=== PATIENT | female | born 1950 | race Caucasian/White ===

== ENCOUNTER 2021-02-22 12:42 | Emergency (ER) | payer MEDICARE ==
[~2021-02-22] VITALS: Ht 162.6 cm; Wt 69.5 kg
--- NOTE | 2021-02-22 12:58 | NUR ---
Pt is not a stroke alert per Dr Riddle.
[2021-02-22 13:48] LABS: BASOPHILS # (AUTO) 0.1 X10'3 (0-0.2); BASOPHILS % (AUTO) 0.7 % (0-1); EOSINOPHILS # (AUTO) 0.1 X10'3 (0-0.9); EOSINOPHILS % (AUTO) 1.1 % (0-6); HEMATOCRIT 36.2 % (35.0-45.0); LYMPHOCYTES # (AUTO) 1.8 X10'3 (1.1-4.8); LYMPHOCYTES % (AUTO) 18.7 % (21-51); MEAN CORPUSCULAR HEMOGLOBIN 28.2 PG (27.0-31.0); MEAN CORPUSCULAR HGB CONC 33.1 g/dL (33.0-36.5); MEAN CORPUSCULAR VOLUME 85.2 FL (78-98); MEAN PLATELET VOLUME 8.7 FL (7.4-10.4); MONOCYTES # (AUTO) 1.1 X10'3 (0-0.9); MONOCYTES % (AUTO) 11.4 % (2-12); NEUTROPHILS # (AUTO) 6.5 X10'3 (1.8-7.7); NEUTROPHILS % (AUTO) 68.1 % (42-75); PLATELET COUNT 249 X10'3 (140-440); RED BLOOD COUNT 4.25 X10'6 (4.20-5.60); RED CELL DISTRIBUTION WIDTH 13.9 % (11.5-14.5); WHITE BLOOD COUNT 9.5 X10'3 (4.5-11.0)
[2021-02-22 14:01] LABS: CLARITY,URINE CLEAR (Clear); COLOR,URINE YELLOW (Yellow); GLUCOSE, URINE NEGATIVE (Neg); KETONES,URINE NEGATIVE (Neg); LEUKOCYTE ESTERASE ,URINE NEGATIVE (Neg); NITRITES, URINE NEGATIVE (Neg); OCCULT BLOOD,URINE NEGATIVE (Neg); PH,URINE 5.5 (4.8-8.0); PROTEIN,URINE 30 mg/dl (Neg); UROBILINOGEN,URINE 0.2 E.U/dL (0.2-1.0)
[2021-02-22 14:03] LABS: ALANINE AMINOTRANSFERASE 21 U/L (12-78); ALBUMIN 3.6 G/DL (3.4-5.0); ALKALINE PHOSPHATASE 74 IU/L (46-116); ANION GAP 9 (8-16); ASPARTATE AMINO TRANSFERASE 19 U/L (10-37); BILIRUBIN,TOTAL 0.3 MG/DL (0.1-1.0); BLOOD UREA NITROGEN 21 MG/DL (7-18); CALCIUM 8.8 MG/DL (8.5-10.1); CHLORIDE 102 MMOL/L (99-107); GLUCOSE 116 MG/DL (70-104); POTASSIUM 3.7 MMOL/L (3.5-5.1); SODIUM 138 MMOL/L (135-145); TOTAL CARBON DIOXIDE 27.1 MMOL/L (24-32); TOTAL PROTEIN 7.3 G/DL (6.4-8.2); eGFR 55 ML/MIN
[2021-02-22 14:03] LABS: UA COLLECTION TYPE CLN CATCH MIDSTREAM
[2021-02-22 14:07] LABS: RBC,URINE NONE SEEN /HPF (0-2); WBC,URINE 0-4 /HPF (0-4)
[2021-02-22 14:08] LABS: BACTERIA,URINE NONE SEEN /HPF (Neg); MUCUS STRANDS FEW /LPF (Neg); SQUAMOUS EPITHELIAL CELL,UR NONE SEEN /LPF (FEW)
[2021-02-22] MEDS ORDERED: MECL-231 PO (17:00)
[2021-02-22 17:13] VITALS: BP 141/63
== END 2021-02-22 17:14 | disposition home or self-care (01) ==
LOC: ER 12:43
DX: F43.20 Adjustment disorder, unspecified (principal); H53.2 Diplopia; R42 Dizziness and giddiness; I10 Essential (primary) hypertension; J45.909 Unspecified asthma, uncomplicated; M10.9 Gout, unspecified; Z72.89 Other problems related to lifestyle; Z98.890 Other specified postprocedural states; Z79.899 Other long term (current) drug therapy
CPT/HCPCS: 36415; 70450; 71045; 80053; 81001; 82948; 83880; 84484; 85025; 93005; 99285

== ENCOUNTER 2023-01-13 06:49 | Inpatient (IN) | payer MEDICARE ==
[2023-01-07 12:37] LABS: BASOPHILS # (AUTO) 0.1 X10'3 (0-0.2); BASOPHILS % (AUTO) 0.9 % (0-1); EOSINOPHILS # (AUTO) 0.2 X10'3 (0-0.9); EOSINOPHILS % (AUTO) 2.6 % (0-6); LYMPHOCYTES # (AUTO) 2.5 X10'3 (1.1-4.8); MEAN CORPUSCULAR HEMOGLOBIN 28.8 PG (27.0-31.0); MEAN CORPUSCULAR HGB CONC 32.7 g/dL (33.0-36.5); MEAN CORPUSCULAR VOLUME 88.1 FL (78-98); MEAN PLATELET VOLUME 8.7 FL (7.4-10.4); MONOCYTES # (AUTO) 0.8 X10'3 (0-0.9); MONOCYTES % (AUTO) 8.3 % (2-12); NEUTROPHILS # (AUTO) 5.9 X10'3 (1.8-7.7); NEUTROPHILS % (AUTO) 62.2 % (42-75); PRE OP HEMATOCRIT 42.1 % (35.0-45.0); PRE OP HEMOGLOBIN 13.7 g/dL (12.0-16.0); PRE OP PLATELET COUNT 278 X10'3 (140-440); RED BLOOD COUNT 4.77 X10'6 (4.20-5.60); RED CELL DISTRIBUTION WIDTH 13.8 % (11.5-14.5)
[2023-01-07 12:55] LABS: ALKALINE PHOSPHATASE 86 IU/L (46-116); BLOOD UREA NITROGEN 23 MG/DL (7-18); BUN/CREATININE RATIO 21.1 (6.6-38.0); CALCIUM 9.4 MG/DL (8.5-10.1); CHLORIDE 103 MMOL/L (99-107); CREATININE 1.09 MG/DL (0.40-0.90); PRE OP ALT 21 U/L (30-65); PRE OP ANION GAP 10 (8-16); PRE OP AST 28 U/L (10-37); PRE OP BILIRUB, TOTAL 0.4 MG/DL (0.0-1.0); PRE OP GLUCOSE 97 MG/DL (70-104); PRE OP POTASSIUM 4.1 MMOL/L (3.4-5.1); PRE OP SODIUM 139 MMOL/L (135-145); TOTAL CARBON DIOXIDE 26.1 MMOL/L (24-32); eGFR 49 ML/MIN
[2023-01-13] VITALS (26 sets, daily range): BP systolic 117–170; BP diastolic 49–65
[~2023-01-13] VITALS: Ht 162.6 cm; Wt 64.9 kg
--- NOTE | 2023-01-13 06:20 | NUR ---
Problems reprioritized. Patient report given, questions answered & plan of care reviewed with Bekah Godfrey RN.
[~2023-01-13 06:49] MED LIST: CYCL-394 PO; DILT120C51 PO; FIBER PO; FLUO-213 PO; LEVO75TA7 PO; LOVA20TA2 PO; MONT-40 PO; MULT-1085 PO; SUCR1TAB PO; ceFAZolin inj. 2,000 MG in dextrose 5%-water 100 ML IV ONE; famotidine 20mg tablet PO ONE; ringers solution, lacted 1,000 ML IV SCH; tranexamic acid 650mg tablet PO ONE; vancomycin/NS 1 GM in NS 250 ML IV ONE
--- NOTE | 2023-01-13 06:55 | NUR ---
PT ARRIVED TO [facility] FOR R [facility]SA. PT COMPLETED 5 DAYS OF HIBICLENS SHOWERS AND 4 DAYS OF NASAL OINTMENT. SHE READ THE BOOKLET FOR EDUCATION. RADIAL PULSES STRONG AND MARKED. CSM W/N/L. Addendum: 01/13/23 at 0900 by Aurora Mcgee RN Amended: Links added.
[2023-01-13] MEDS ORDERED: fentaNYL/PF 50MCG/1 ML 2ML syringe IV PRN ×2 (08:40)
[2023-01-13] MEDS ORDERED: morphine 4 MG/ML inj SYRINge IV PRN (08:40)
[2023-01-13] MEDS ORDERED: morphine 2 MG/ML inj. syringe IV PRN (08:40)
[2023-01-13] MEDS ORDERED: hydrALAZINE 20mg/ml inj. IV PRN (08:40)
[2023-01-13] MEDS ORDERED: ondansetron/PF 4mg/2ml inj IV PRN ×2 (08:40→11:50)
[2023-01-13] MEDS ORDERED: labetalol 20mg/4ml (5mg/ml) syringe IV PRN (08:40)
[2023-01-13] MEDS ORDERED: ringers solution, lacted 1,000 ML IV SCH (08:40)
[2023-01-13] MEDS ORDERED: ROPIVAcaine 0.2%/PF PUMP/bolus 545 ML INTERSCALE SCH (08:45)
[2023-01-13] MEDS ORDERED: ROPIVAcaine 0.2% (10 MG/5 ML) BOLUS INJECTION INTERSCALE PRN (08:45)
[2023-01-13] MEDS ORDERED: sevoflurane 250ml liquid IH ONE (09:24)
[2023-01-13] MEDS ORDERED: fentaNYL/PF 50MCG/1 ML 2ML syringe ONE (09:30)
[2023-01-13] MEDS ORDERED: dexamethasone sod phosphate 4mg/ml inj. ONE (10:03)
[2023-01-13] MEDS ORDERED: ePHEDrine 50MG/ML INJ. ONE (10:03)
[2023-01-13] MEDS ORDERED: ondansetron/PF 4mg/2ml inj ONE (10:03)
[2023-01-13] MEDS ORDERED: propofol inj 20 ML IV ONE (10:03)
[2023-01-13] MEDS ORDERED: ROPIVAcaine 0.5% (5mg/ml) 30ml vial ONE ×2 (10:14→10:55)
--- NOTE | 2023-01-13 11:13 | NUR ---
Received from OR via , accompanied by Anesthesiologist SOUTH AND OR NURSE and report given by Anesthesiolgist. PT IS DROWSY YET ABLE TO RESPOND TO VERBAL STIMULI; DENIES PAIN OR DISCOMFORT. RT SHOULDER WITH PWDR PACK SLEEVE, SLING AND ONQ CATH, ISLAND DRESSING; CDI. 20G LT HAND INFUSING PACU LR. VSS Addendum: 01/13/23 at 1135 by Dina Licona RN Amended: Links added.
[2023-01-13] MEDS ORDERED: naloxone 0.4 mg/ml inj IV PRN (11:50)
[2023-01-13] MEDS ORDERED: magnesium hydroxide 30ml (MOM) UD suspension PO PRN (11:50)
[2023-01-13] MEDS ORDERED: cyclobenzaprine 10mg tablet PO PRN (11:50)
[2023-01-13] MEDS ORDERED: acetaminophen 325mg tablet PO PRN (11:50)
[2023-01-13] MEDS ORDERED: HYDROmorphone 1 mg/ml syringe IV PRN (11:50)
[2023-01-13] MEDS ORDERED: HYDROcodone/acetaminophen 10/325mg tab PO PRN ×2 (11:50)
[2023-01-13] MEDS ORDERED: oxyCODONE IR 5mg (immed. release) tablet PO PRN (11:50)
[2023-01-13] MEDS ORDERED: bisacodyl 10mg suppository rectal RC PRN (11:50)
[2023-01-13] MEDS ORDERED: HYDROmorphone inj. 0.5 MG/0.5 ML DISP.SYRIN IV PRN (11:50)
[2023-01-13] MEDS ORDERED: diphenhydrAMINE 25mg capsule PO PRN ×2 (11:50)
--- NOTE | 2023-01-13 13:33 | NUR ---
PATIENT HAS MET ALL CRITERIA FOR TRANSFER TO THE SURGICAL FLOOR. VSS. DRESSINGS INTACT. BED LOW, CALL LIGHT PRESENT AND 2 RAILS UP. RN PRESENT TO ACCEPT CARE OF PATIENT AND REPORT HAS BEEN CALLED. ALL QUESTIONS ANSWERED TO ACCEPTING RN. Addendum: 01/13/23 at 1347 by Dina Licona RN Amended: Links added.
--- NOTE | 2023-01-13 13:33 | NUR ---
Patient in room PAS IN 901. I have received report from Lea Cutler in recovery and had the opportunity to ask questions and assume patient care.
--- NOTE | 2023-01-13 14:00 | NUR ---
Patient in room DONNA 360. I have received report from Zina REILLY and had the opportunity to ask questions and assume patient care.
[2023-01-13] MEDS: ceFAZolin/D5W- 1GM premix 50 ML IV SCH (17:00)
--- NOTE | 2023-01-13 18:35 | NUR ---
Patient in room DONNA 349. I have received report from JOE REILLY and had the opportunity to ask questions and assume patient care.
[2023-01-13] MEDS ORDERED: vancomycin/NS 1 GM ADD-VANTAGE 250 ML IV SCH (20:00)
[2023-01-13] MEDS: acetaminophen 325mg tablet PO SCH ×2 (20:00→20:50)
[2023-01-13] MEDS: oxyCODONE IR 5mg (immed. release) tablet PO PRN (20:49)
[2023-01-13] MEDS: potassium cl 20mEq in 1/2 NS 1,000 ML IV SCH ×2 (20:52→20:57)
[2023-01-13] MEDS ORDERED: atorvastatin 10mg tablet PO SCH (21:00)
[2023-01-13] MEDS ORDERED: sennosides 8.6mg tablet PO SCH (21:00)
[2023-01-14] MEDS: ceFAZolin/D5W- 1GM premix 50 ML IV SCH (00:48)
[2023-01-14] MEDS: oxyCODONE IR 5mg (immed. release) tablet PO PRN ×2 (00:55→05:56)
[2023-01-14 02:00] VITALS: BP 122/52
[2023-01-14] MEDS: acetaminophen 325mg tablet PO SCH ×3 (02:00→14:49)
[2023-01-14] MEDS: potassium cl 20mEq in 1/2 NS 1,000 ML IV SCH ×2 (04:42→11:50)
[2023-01-14 06:00] VITALS: BP 143/59
[2023-01-14 06:19] LABS: ANION GAP 6 (8-16); CHLORIDE 106 MMOL/L (99-107); POTASSIUM 4.5 MMOL/L (3.5-5.1); SODIUM 137 MMOL/L (135-145); TOTAL CARBON DIOXIDE 24.8 MMOL/L (24-32)
[2023-01-14 06:21] LABS: BASOPHILS % (AUTO) 0 % (0-1); EOSINOPHILS % (AUTO) 0 % (0-6); HEMOGLOBIN 11.1 g/dl (12.0-16.0); LYMPHOCYTES # (AUTO) 0.8 X10'3 (1.1-4.8); LYMPHOCYTES % (AUTO) 6.2 % (21-51); MEAN CORPUSCULAR HEMOGLOBIN 28.8 PG (27.0-31.0); MEAN CORPUSCULAR HGB CONC 32.8 g/dL (33.0-36.5); MEAN CORPUSCULAR VOLUME 87.9 FL (78-98); MEAN PLATELET VOLUME 9.2 FL (7.4-10.4); MONOCYTES # (AUTO) 1.3 X10'3 (0-0.9); MONOCYTES % (AUTO) 10.2 % (2-12); NEUTROPHILS # (AUTO) 10.6 X10'3 (1.8-7.7); NEUTROPHILS % (AUTO) 83.6 % (42-75); PLATELET COUNT 211 X10'3 (140-440); RED BLOOD COUNT 3.87 X10'6 (4.20-5.60); RED CELL DISTRIBUTION WIDTH 13.5 % (11.5-14.5); WHITE BLOOD COUNT 12.6 X10'3 (4.5-11.0)
--- NOTE | 2023-01-14 06:32 | NUR ---
Problems reprioritized. Patient report given, questions answered & plan of care reviewed with GLORIA REILLY.
[2023-01-14] MEDS ORDERED: levoTHYROXINE 75mcg tablet PO SCH (07:00)
--- NOTE | 2023-01-14 07:16 | NUR ---
Patient in room DONNA 349. I have received report from Bekah Godfrey RN and had the opportunity to ask questions and assume patient care.
[2023-01-14] MEDS ORDERED: FIBER PO SCH (08:00)
[2023-01-14] MEDS ORDERED: multivitamins, therapeutics tablet PO SCH (08:00)
[2023-01-14] MEDS ORDERED: montelukast 10mg tablet PO SCH (08:00)
[2023-01-14] MEDS ORDERED: FLUoxetine 20mg capsule PO SCH (08:00)
[2023-01-14] MEDS ORDERED: diltiazem CD 120mg capsule (once-daily) PO SCH (08:00)
[2023-01-14] MEDS ORDERED: aspirin 325mg tablet PO SCH (08:30)
[2023-01-14 10:00] VITALS: BP 115/50
--- NOTE | 2023-01-14 11:26 | NUR ---
Joint surgery consult: Pt s/p R shoulder surgery this admit per EMR. Pt seen by GURU for written/verbal high protein diet ed w/ RD contact information provided. GURU encouraged pt to contact dietitian's office if further nutrition questions/concerns. Addendum: 01/14/23 at [address] Amended: Links added.
--- NOTE | 2023-01-14 14:00 | NUR ---
pt is DC to home with , Pt is A & o x4 and on no apparent distress. Pt verbalizes understanding of all DC orders. OnQ ball removed. Cathered came off, Adia Darcy removed it. Pt is not painful and is happy to go home. Pt given ice packs. Pt wheeled to the front where amber took her home.
[2023-01-15] MEDS ORDERED: acetaminophen 325mg tablet PO PRN (11:50)
== END 2023-01-14 15:05 | disposition home or self-care (01) | DRG 483 ==
LOC: PAS IN 06:49 → SUR 3N 13:39
PROVIDERS: ADMIT Orthopaedic Surgery; ATTEND Orthopaedic Surgery
PROC: 0LS30ZZ Reposition Right Upper Arm Tendon, Open Approach (ICD-10-PCS; 2023-01-13)
PROC: 3E0T3BZ Introduction of Anesthetic Agent into Peripheral Nerves and Plexi, Percutaneous Approach (ICD-10-PCS; 2023-01-13)
PROC: 3E0T33Z Introduction of Anti-inflammatory into Peripheral Nerves and Plexi, Percutaneous Approach (ICD-10-PCS; 2023-01-13)
PROC: 0RRJ00Z Replacement of Right Shoulder Joint with Reverse Ball and Socket Synthetic Substitute, Open Approach (ICD-10-PCS; principal; 2023-01-13 09:24)
DX: M19.011 Primary osteoarthritis, right shoulder (principal); M75.121 Complete rotator cuff tear or rupture of right shoulder, not specified as traumatic; M65.811 Other synovitis and tenosynovitis, right shoulder; M75.21 Bicipital tendinitis, right shoulder
CPT/HCPCS: 36415; 80051; 80053; 82948; 84443; 85025; 87081; 93005; 97110; 97161; 97530; G0378; J0690; J1100; J2405; J2704; J2795; J3010; J3370; J3480; J3490; J7060; J7120